=== PATIENT | male | born 1965 | race Caucasian/White ===

== ENCOUNTER → 2021-09-12 | Day surgery (SDC) | payer MEDICARE ==
[~2021-09-12] MED LIST: BACTRIM DS TAB1 EACH PO; CENTANY30 GM TP; CYCLOBENZAPRINE5 MG PO; ENDOCET 7.5-321 EACH PO; FLOMAX 0.4 MG0.4 MG PO; GABAPENTIN300 MG PO; LINZESS145 MCG PO; MELOXICAM7.5 MG PO; MINOCYCLINE HC100 M1 PO
== END | disposition home or self-care (01) ==
LOC: OR 06:55 → EDSEX 07:30
DX: D12.3 Benign neoplasm of transverse colon (principal); D12.8 Benign neoplasm of rectum; K31.9 Disease of stomach and duodenum, unspecified; K21.00 Gastro-esophageal reflux disease with esophagitis, without bleeding; K59.09 Other constipation; K29.50 Unspecified chronic gastritis without bleeding; K22.89 Other specified disease of esophagus; R10.31 Right lower quadrant pain; K56.699 Other intestinal obstruction unspecified as to partial versus complete obstruction; Z86.010 Personal history of colon polyps; Z20.822 Contact with and (suspected) exposure to COVID-19
CPT/HCPCS: J2704; J7040; U0002